=== PATIENT | male | born 1950 | race Two or more races ===

== ENCOUNTER 2020-04-06 14:58 | Emergency (ER) | payer OTHER ==
[~2020-04-06] VITALS: Ht 170.2 cm; Wt 67.6 kg
[2020-04-06] MEDS ORDERED: SODIUM CHLORIDE 0.9% 1,000 ML IV ONE ×2 (15:39→16:36)
[2020-04-06] MEDS ORDERED: ACETAMINOPHEN 500 MG TAB PO ONE (15:45)
[2020-04-06] MEDS ORDERED: INDOMETHACIN 25 MG CAP PO ONE (15:45)
[2020-04-06 16:00] LABS: Basophils # (auto) 0.1 10 ^3/uL (0-0.2); Basophils % (auto) 0.3 % (0.0-2.0); Eosinophils # (auto) 0 10 ^3/uL (0-0.8); Hematocrit 37.7 % (41.0-53.0); Lymphocytes # (auto) 0.8 10 ^3/uL (0.4-5.4); Lymphocytes % (auto) 4.5 % (10.0-50.0); Mean Corpuscular Hemoglobin 22.2 pg (28.0-32.0); Mean Corpuscular Hgb Conc. 31.8 g/dL (32.0-36.0); Mean Corpuscular Volume 69.6 fL (80.0-100.0); Monocytes % (auto) 10.9 % (0.0-12.0); Neutrophils # (auto) 15.7 10 ^3/uL (1.6-8.6); Neutrophils % (auto) 84.3 % (37.0-80.0); Platelet Count (auto) 414 10^3/uL (140-450); Red Blood Cells 5.41 10^6/uL (4.5-5.90); Red Cell Distribution Width 17.6 % (11.8-14.3); White Blood Cell 18.6 10^3/uL (4.4-10.8)
[2020-04-06 16:16] LABS: Anion Gap 9 (5-15); Blood Urea Nitrogen 24 mg/dL (7-18); Calcium 8.9 mg/dL (8.5-10.1); Carbon Dioxide 26 mmol/L (21-32); Chloride 92 mmol/L (98-107); Glucose 203 mg/dL (74-106); Potassium 3.8 mmol/L (3.5-5.1); Sodium 127 mmol/L (136-145)
[2020-04-06 16:21] LABS: Alanine Aminotransferase 38 U/L (16-61); Alkaline Phosphatase 127 U/L (45-117); Aspartate Aminotransferase 26 U/L (15-37); BUN/Creatinine Ratio 16.1; Bilirubin, Total 3.2 mg/dL (0.2-1.0); GFR African American 60 mL/min; GFR Non-African American 50 mL/min; Total Protein 8.1 g/dL (6.4-8.2); Uric Acid 7.8 mg/dL (3.5-7.2)
[2020-04-06 16:38] LABS: Albumin 2.4 g/dL (3.4-5.0)
[2020-04-06] MEDS ORDERED: PIPERACILLIN-TAZOB 3.375GM 100 ML IV ONE (16:45)
[2020-04-06 18:26] LABS: Lactic Acid w/Reflex 2.1 mmol/L (0.4-2.0)
[2020-04-06 20:21] VITALS: BP 152/64
== END 2020-04-06 21:45 | disposition home or self-care (01) ==
LOC: ER 14:58
DX: E87.1 Hypo-osmolality and hyponatremia (principal); D72.829 Elevated white blood cell count, unspecified; E11.65 Type 2 diabetes mellitus with hyperglycemia; E86.0 Dehydration; E43 Unspecified severe protein-calorie malnutrition; L03.90 Cellulitis, unspecified; M25.561 Pain in right knee; M25.562 Pain in left knee; M25.532 Pain in left wrist
CPT/HCPCS: 36415; 71045; 73110; 73562; 80053; 83605; 84484; 84550; 85025; 87040; 96365; 96366; 99284; J2543